=== PATIENT | male | born 1950 | race Caucasian/White ===

== ENCOUNTER 2023-09-28 14:24 | Outpatient (AMB) | payer OTHER, SELFPAY ==
--- NOTE | 2023-09-28 14:38 | MHC.OFFVIS ---
Intake Vital Signs 09/28/23 14:42 Height 5 ft 8 in Weight 232 lb BMI 35.3 BP 128/70 Blood Pressure Location Rt brachial Position Sitting Pulse 66 Pulse Source Pulse Oximeter Pulse Oximetry (%) 97 Oxygen Delivery Method Room Air Intake Visit Reasons: chronic cough Assistant Librarian Required: No Allergies levofloxacin [From Levaquin] Adverse Reaction (Severe, Verified 09/28/23 14:45) Joint Pain Penicillins Adverse Reaction (Severe, Verified 09/28/23 14:45) Rash HPI HPI Comments History of Present Illness Details The patient is here for pulmonary evaluation. The patient is a 73-year-old gentleman who was referred for a chronic cough. The patient states that he has been coughing for many years. Although seems like it has been getting worse in the last year. The cough is typically nonproductive in nature. And happens at any time with the day and night. the patient does have allergies. Typically uses fluticasone nasal spray but typically more during the spring and fall. He has not using at this time as he does not have any significant allergies. He was evaluated by his primary care doctor who ordered imaging studies including a CT scan of the chest. The CT scan of the chest was read without any evidence of a parenchymal disease. Patent airways. No evidence of any pulmonary nodules no evidence of any interstitial lung disease. Overall very reassuring CT scan. The patient states that he has use her rescue inhaler in the past primarily when he has had a respiratory illness the inhaler became very helpful that time. At this point he has not using 1 does not really need 1. the patient states that since he lost about 20 lb after getting diagnosed with diabetes his cough has improved to some degree. Therefore the dietary changes that he is made have improve his overall cough. We did talk about chronic cough. Explained to him that typically is related to an upper airway cough syndrome and also need to consider chronic reflux disease and also asthma. May have a component of all 3. clinically right now the patient is feeling fairly well. [facility] Medical History (Updated 09/28/23 @ 22:02 by Dewey Reno MD) Upper airway cough syndrome Chronic allergic rhinitis Glaucoma Atrial fibrillation Chronic cough Social History (Updated 09/28/23 @ 14:48 by KAE Rivera) Patient Tobacco Use Status: Never used Tobacco Review of Systems Const Denies fever(s) Eyes Reports change in vision ENT Reports nasal congestion and Reports nasal discharge Card Denies chest pain Resp Denies chest congestion, Reports cough and Denies wheezing GI Reports no additional complaints Musc Reports no additional complaints Skin/Breast Denies rash Neuro Reports no additional complaints Buzz/Lymph Denies lymphadenopathy Aller/Immun Denies wheezing Physical Exam Vital Signs: Last Vital Signs Pulse 66 09/28/23 14:42 BP 128/70 09/28/23 14:42 Pulse Ox 97 09/28/23 14:42 Oxygen Delivery Method Room Air 09/28/23 14:42 BMI result Body Mass Index 35.3 Const General: comfortable HEENT Head: Yes normocephalic Neck Neck: Yes supple Chest Chest palpation & inspection: normal inspection of the chest Resp Effort & Inspection: normal respiratory effort Auscultation: clear to auscultation bilaterally Cardio Rate: regular rate Rhythm: abnormal rhythm Heart sounds: S1 normal heart sound present and S2 normal heart sound present GI Palpation (GI): Soft to palpation Skin General skin exam: no rashes or lesions noted Extrem General: No clubbing and No cyanosis Assessment & Plan Assessment & Plan (1) Chronic cough: Code(s): R05.3 - Chronic cough (2) Chronic allergic rhinitis: Code(s): J30.9 - Allergic rhinitis, unspecified (3) Upper airway cough syndrome: Code(s): R05.8 - Other specified cough Plan PFTs restart fluticasone nasal spray Tessalon pearls as needed consider PAMELA as needed F/U 3 months Orders: Orders PFT pulmonary function test Today R05.3 - Chronic cough Medications: New benzonatate 200 mg PO BID PRN 180 caps 0RF cough 90 days Coding Level of Care Code New Pt Level 4 (69541) Diagnoses Chronic cough R05.3 Chronic allergic rhinitis J30.9 Upper airway cough syndrome R05.8 Time Spent (min) 37
[2023-09-28 14:42] VITALS: BP 128/70; PULSE 66; O2SAT 97; BMI 35.3
== END 2023-09-28 15:18 | disposition home or self-care (01) ==
PROVIDERS: PCP Nurse Practitioner Family; Referring Provider Nurse Practitioner Family; Visit Provider Hospitalist
DX: R05.3 Chronic cough (principal); J30.9 Allergic rhinitis, unspecified; R05.8 Other specified cough
CPT/HCPCS: 99204

== ENCOUNTER → 2023-09-28 14:24 | Outpatient (BNVA) | payer OTHER, SELFPAY | PROVIDERS: PCP Nurse Practitioner Family; Referring Provider Nurse Practitioner Family; Visit Provider Hospitalist | DX: R05.3 Chronic cough (principal); J30.9 Allergic rhinitis, unspecified | CPT/HCPCS: 99202 ==

== ENCOUNTER 2023-10-21 | Outpatient (REF) | payer OTHER, SELFPAY ==
[2023-10-21 08:19] VITALS: PULSE 60; RESP 14; O2SAT 97
--- NOTE | 2023-10-21 11:39 | PFT_ITS ---
Flows: FEV1: 98 % of predicted at 2.87 L FVC: 95 % of predicted at 3.67 L FEV1/FVC: 78 % Bronchodilator response: Present Volumes: Lung volume measurements are not available secondary to technical issue. Diffusion capacity: Normal Impression: No obstructive ventilatory defect. Positive bronchodilator response. Lung volume measurements are not available secondary to technical issue. MTDD
== END 2023-10-21 00:01 | disposition home or self-care (01) ==
LOC: HO.RESP
PROVIDERS: PCP Nurse Practitioner Family; Referring Provider Hospitalist; Visit Provider Hospitalist
DX: R05.3 Chronic cough (principal)
CPT/HCPCS: 94010; 94640; 94727; 94729

== ENCOUNTER → 2023-10-21 11:39 | Outpatient (BNV) | payer OTHER, SELFPAY | PROVIDERS: PCP Nurse Practitioner Family; Visit Provider Internal Medicine Pulmonary Disease | DX: R05.3 Chronic cough (principal) | CPT/HCPCS: 94060; 94729 ==

== ENCOUNTER 2024-01-01 14:17 | Outpatient (AMB) | payer OTHER, SELFPAY ==
--- NOTE | 2024-01-01 14:20 | MHC.OFFVIS ---
Vital Signs 01/01/24 14:22 Height 5 ft 8 in Weight 224 lb BMI 34.1 Pulse 76 Pulse Source Pulse Oximeter Pulse Oximetry (%) 95 Oxygen Delivery Method Room Air Intake Visit Reasons: chronic cough Breastfeeding Peer Counselor Required: No Allergies levofloxacin [From Levaquin] Adverse Reaction (Severe, Verified 01/01/24 14:24) Joint Pain Penicillins Adverse Reaction (Severe, Verified 01/01/24 14:24) Rash HPI Comments Details: The patient is a 73-year-old gentleman who was referred for a chronic cough. The patient states that he has been coughing for many years. Although seems like it has been getting worse in the last year. The cough is typically nonproductive in nature. And happens at any time with the day and night. the patient does have allergies. Typically uses fluticasone nasal spray but typically more during the spring and fall. He has not using at this time as he does not have any significant allergies. He was evaluated by his primary care doctor who ordered imaging studies including a CT scan of the chest. The CT scan of the chest was read without any evidence of a parenchymal disease. Patent airways. No evidence of any pulmonary nodules no evidence of any interstitial lung disease. Overall very reassuring CT scan. The patient states that he has use her rescue inhaler in the past primarily when he has had a respiratory illness the inhaler became very helpful that time. At this point he has not using 1 does not really need 1. the patient states that since he lost about 20 lb after getting diagnosed with diabetes his cough has improved to some degree. Therefore the dietary changes that he is made have improve his overall cough. We did talk about chronic cough. Explained to him that typically is related to an upper airway cough syndrome and also need to consider chronic reflux disease and also asthma. May have a component of all 3. clinically right now the patient is feeling fairly well. 01/01/2024 the patient is here for a pulmonary follow-up visit. Overall the patient has been doing better. He states his cough is worse better. He does use the Benzonates as needed. He continues use a nasal spray. He also has a rescue inhaler. In the meantime he did undergo pulmonary function studies which we personally reviewed. It appears that his FEV1 to FVC went from 71% to 78% suggesting that the patient did have a bronchodilator effect and therefore may have a component of asthma. The patient has not had to use it often typically less than 2 times a week. In the meantime he still using the CPAP therapy. The CPAP therapy continues to be affecting beneficial. He does try to use it more than 4 hours a night although he struggles at times. The patient does use nasal pillows. He did bring the machine and I was able to downloaded. His AHI was actually 22. when we further broken down for that last night it appears that around 18 of the 22 episodes were mainly central apnea related. His CPAP is set up at 6 cm with a ramp of 5. based on the fact that he is having significant amount of central apneas suggesting complex sleep apnea I decrease the CPAP down to 5 cm with a ramp before. He will tolerate that and will monitor closely the AHI numbers. In the meantime he did have an air leak and he does need a chinstrap. I will give him a [facility]. Will follow-up in 3 months although the patient is still having any issues and elevated AHI will call for further recommendations. [facility] Medical History (Updated 01/01/24 @ 22:46 by Dewey Reno MD) Complex sleep apnea syndrome JORDEN on CPAP Upper airway cough syndrome Chronic allergic rhinitis Glaucoma Chronic cough Social History (Updated 09/28/23 @ 14:48 by KAE Rivera) Patient Tobacco Use Status: Never used Tobacco Review of Systems Const Denies fever(s) Eyes Reports change in vision ENT Reports nasal congestion and Reports nasal discharge Card Denies chest pain Resp Denies chest congestion, Reports cough and Denies wheezing GI Reports no additional complaints Musc Reports no additional complaints Skin/Breast Denies rash Neuro Reports no additional complaints Buzz/Lymph Denies lymphadenopathy Aller/Immun Denies wheezing Physical Exam Vital Signs: Last Vital Signs Pulse 76 01/01/24 14:22 Pulse Ox 95 01/01/24 14:22 Oxygen Delivery Method Room Air 01/01/24 14:22 BMI result Body Mass Index 34.1 Const General: comfortable HEENT Head: Yes normocephalic Neck Neck: Yes supple Chest Chest palpation & inspection: normal inspection of the chest Resp Effort & Inspection: normal respiratory effort Auscultation: clear to auscultation bilaterally Cardio Rate: regular rate Rhythm: abnormal rhythm Heart sounds: S1 normal heart sound present and S2 normal heart sound present GI Palpation (GI): Soft to palpation Skin General skin exam: no rashes or lesions noted Extrem General: No clubbing and No cyanosis Assessment & Plan Assessment & Plan (1) Chronic cough: Code(s): R05.3 - Chronic cough Category: Medical (2) Chronic allergic rhinitis: Code(s): J30.9 - Allergic rhinitis, unspecified Category: Medical (3) Upper airway cough syndrome: Code(s): R05.8 - Other specified cough Category: Medical (4) JORDEN on CPAP: Code(s): G47.33 - Obstructive sleep apnea (adult) (pediatric) Category: Medical (5) Complex sleep apnea syndrome: Code(s): G47.31 - Primary central sleep apnea Category: Medical Plan fluticasone nasal spray Tessalon pearls as needed consider PAMELA as needed adjusted CPAP 6->5, ramp 4 Needs a chin strap to use with the nasal pillow mask F/U 3 months Coding Level of Care Code Est Pt Level 4 (12406) Diagnoses Chronic cough R05.3 Chronic allergic rhinitis J30.9 Upper airway cough syndrome R05.8 JORDEN on CPAP G47.33 Complex sleep apnea syndrome G47.31 Time Spent (min) 18
[2024-01-01 14:22] VITALS: PULSE 76; O2SAT 95; BMI 34.1
== END 2024-01-01 14:58 | disposition home or self-care (01) ==
PROVIDERS: PCP Nurse Practitioner Family; Visit Provider Hospitalist
DX: R05.3 Chronic cough (principal); J30.9 Allergic rhinitis, unspecified; R05.8 Other specified cough; G47.33 Obstructive sleep apnea (adult) (pediatric); G47.31 Primary central sleep apnea
CPT/HCPCS: 99214

== ENCOUNTER → 2024-01-01 14:17 | Outpatient (BNVA) | payer OTHER, SELFPAY | PROVIDERS: PCP Nurse Practitioner Family; Visit Provider Hospitalist | DX: G47.33 Obstructive sleep apnea (adult) (pediatric) (principal); G47.31 Primary central sleep apnea; J30.9 Allergic rhinitis, unspecified; R05.3 Chronic cough; R05.8 Other specified cough | CPT/HCPCS: 99212 ==